=== PATIENT | male | born 1965 | race African-American/Black ===

== ENCOUNTER → 2021-02-08 | Outpatient (CLI) | payer BC ==
--- NOTE | 2021-02-08 22:22 | REP ---
INDICATION: RT SUBMANDIBULAR LYMPHNODE SWELLING ? SOLID COMPARISON: None. TECHNIQUE: Directed grayscale and color B-mode evaluation using linear high-frequency transducer. FINDINGS: Directed ultrasound examination of the right submandibular region demonstrates multiple prominent lymph nodes measuring up to roughly 10 x 8 x 22 mm and 17 x 6 x 12 mm along with heterogeneous ovoid solid complex mass lesions measuring 3.2 x 1.8 x 2.6 cm and 2.8 x 2.1 x 3.3 cm which may represent large pathologic lymph nodes are nonspecific mass lesion. IMPRESSION: Right submandibular prominent lymph nodes and 2 complex solid mass lesions possibly reflecting pathologic lymph nodes. Correlation with physical examination and underlying symptomatology is recommended. Short-term follow-up is warranted to confirm regression or to evaluate for the possible need of tissue sampling. <Electronically signed by Gerry Corrales > 02/08/21 1133
== END ==
LOC: M RAD 11:10
PROVIDERS: ATTEND Internal Medicine
DX: R22.1 Localized swelling, mass and lump, neck (principal)

== ENCOUNTER → 2021-02-21 | Outpatient (CLI) | payer BC ==
[~2021-02-21] MED LIST: HYDR-3490 PO; LISI20TA33 PO; VITMTA PO
--- NOTE | 2021-02-21 20:58 | ECGEPIP ---
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
== END ==
LOC: M EKG 12:24
PROVIDERS: ATTEND Anesthesiology
DX: Z01.818 Encounter for other preprocedural examination (principal)

== ENCOUNTER → 2021-02-21 | Outpatient (CLI) | payer BC | LOC: M LABSMTC 11:42 | PROVIDERS: ATTEND Anesthesiology | DX: Z01.812 Encounter for preprocedural laboratory examination (principal); Z11.52 Encounter for screening for COVID-19 ==

== ENCOUNTER → 2021-03-14 | Outpatient (CLI) | payer BC ==
[~2021-03-14] MED LIST changes: +LIDOCAINE 1% MDV 20ML VIAL As Ordered ONE; +OMEP1CAP73 PO; +SODIUM BICARBONATE 8.4% INJ 50MEQ 50 ML VIAL As Ordered ONE
[2021-03-14 13:45] VITALS: BP 143/96
--- NOTE | 2021-03-14 18:06 | REP ---
INDICATION: RT ENLARGED LYMPHONDE SUBMANDIBULAR. COMPARISON: None. TECHNIQUE: The procedure was performed by Carol Rayo [facility], under the direct supervision of Dr. Syed. The risks and benefits of the procedure were explained to the patient and an informed consent was obtained both verbally and written. Directly prior to the start of the procedure a formal time-out was completed in the procedure room. FINDINGS: Using ultrasound guidance the right submandibular lymph node was localized. The skin was prepped and draped in a sterile fashion. Thirteen mL of buffered lidocaine was used as a local anesthetic. Using ultrasound guidance a 17/18 gauge coaxial needle biopsy system was inserted and advanced into the right submandibular lymph node. Eight core biopsy specimens were obtained. Four specimens were sent to our lab here, and remaining 4 were sent out in RPMI solution, for further testing. The patient tolerated the procedure well and there were no immediate complications. After the appropriate amount of monitored convalescence the patient was discharged from the department. IMPRESSION: 1. Ultrasound-guided right submandibular lymph node biopsy. <Electronically signed by Carol Rayo > 03/14/21 1551 <Electronically signed by Jordon Syed > 03/14/21 [id number]
== END ==
LOC: M IRPRO 12:31
PROVIDERS: ATTEND Otolaryngology
DX: C77.0 Secondary and unspecified malignant neoplasm of lymph nodes of head, face and neck (principal)

== ENCOUNTER → 2021-04-05 | Outpatient (CLI) | payer BC ==
[~2021-04-05] MED LIST changes: -LIDOCAINE 1% MDV 20ML VIAL As Ordered ONE; -SODIUM BICARBONATE 8.4% INJ 50MEQ 50 ML VIAL As Ordered ONE
--- NOTE | 2021-04-05 12:46 | RADONC.CN ---
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 He has undergone laryngoscopic evaluation with Dr. Jernigan which was unrevealing. He has yet to undergo staging imaging and is seen today for consideration of RT in the management of this unknown primary head and neck cancer. Diagnosis/Treatment History Oncologic History Presented to PCP in January 2021 after noticing right-sided painless neck swelling. 02/08/21 US showing large kerline conglomerate right submental neck. 03/14/21 Biopsy of right level 1B: Lymph node, right submandibular, biopsy: Squamous cell carcinoma, poorly differentiated, involving lymph node. -4/TR 04/08/21 CT N/C/AP pending Interval History Here with his supportive . He reports only mild tenderness in the inferior portion of the adenopathy on the right. He has no weight loss, fevers, or night sweats. He has no oral pain or dysphagia. He quit smoking recently. His appetite is good and he has no fatigue. He works at a [employer] in [place]. He has pending dental extractions with his family dentist. Past Medical History: GERD HTN Past Surgical History: None Family History: Adopted Social History: 30 pack year former smoker quit 2020 Does not drink Allergies / Meds Allergies: Coded Allergies: No Known Allergies (Unverified , 02/16/21) Home Meds Reported Medications Omeprazole (Omeprazole) 20 Mg Capsule.dr, 1 CAP PO DAILY for 30 Days, #30 CAP 03/14/21 Multivitamins (Thera M Plus Tablet) 1 Each Tablet, 1 TAB PO DAILY, TAB 02/16/21 Hydrochlorothiazide (Hydrochlorothiazide) 25 Mg Tablet, 25 MG PO DAILY, TAB 02/16/21 Lisinopril (Lisinopril) 20 Mg Tablet, 20 MG PO DAILY, TAB 02/16/21 Review of Systems Constitutional: Denies: Fever, Malaise, Night Sweats, Fatigue, Weight Loss Eyes: Denies: Pain, Vision change HEENT: Denies: Head Aches, Ear Pain, Dysphagia, Sore Throat Skin: Denies: Rash, Lesions Pulmonary: Denies: Dyspnea, Cough Cardiovascular: Denies: Chest Pain Gastrointestinal: Denies: Abdominal Pain, Diarrhea Hematologic: Denies: Bruising, Bleeding Excessively Endocrine: Denies: Cold Intolerance Musculoskeletal: Denies: Neck pain, Shoulder pain, Arm pain, Back pain Neurological: Denies: Weakness, Numbness Psych: Reports: Mood Normal Vital Signs Ht 68" Wt 245 lbs BMI 37 T 98 P 72 RR 18 BP 141/97 O2 96% Pain 0 Fatigue 0 General Exam: Alert, Cooperative, No Acute Distress Eye Exam: PERRLA, EOMI ENT EXAM: Other ENT (Oral cavity exam, koi dentition with 3 carious teeth, no broken teeth. There are no visible or palpable mucosal lesions in the oral cavity, tongue or FOM. There is no palpable nodularity or lesions in the BOT or tonsillar fossae BL. There is no trismus. Thyroid is not enlarged. Laryngeal crepitus intact, elevates appropriately with swallowing. Neck is supple, there is conglomerate hard nodular adenopathy in the right submandibular fossa ~6 cm in greatest dimension there is evidence of matting and fixation of the kerline mass, the remainder of the necks are without palpable adenopathy. Examination of the head and neck skin reveals no lesions. ) Chest Exam: Clear to auscultation, Normal air movement Heart Exam: Rate Normal Abdomen Exam: Soft; Negative: Tenderness Extremity Exam: Negative: Edema Skin Exam: Nl turgor and temperature Neuro Exam: Normal Gait, Normal Speech, Cranial Nerves 3-12 NL Psych Exam: Mental status NL Other Physical Findings Laryngoscopy: Mic provided verbal consent to be scoped. Cetacaine was introduced in the right nare for anesthesia, the scope was introduced and passed easily to the nasopharynx which was covered in pink mucosa without visible lesions. The posterior pharyngeal wall was pink and well hydrated. The oropharynx was entered, the posterior soft palate was redundant and well visualized without lesions, the base of tongue bilaterally appeared symmetrical and somewhat nodular without any ulceration or kasey masses. The visible portions of the supraglottis and hypopharynx were normal appearing without lesions. The epiglottis was sharp rimmed and upright in orientation. The larynx was freely mobile with phonation and there were no lesions of the cords. The scope was withdrawn without incident and the patient tolerated the procedure well. Diagnostic and Laboratory Diagnostic Review Radiologic images, relevant labs and pathology reports were personally reviewed and discussed with Mr. Contreras. Assessment and Plan Impression Mr. 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 He has undergone laryngoscopic evaluation with Dr. Jernigan which was unrevealing. He has yet to undergo staging imaging and is seen today for consideration of RT in the management of this unknown primary head and neck cancer. Stage Unknown primary SCC of the right submandibular nodes [id number] stage IVB p16 pending Performance Status ECOG 0 Plan We had an extensive discussion with Mr. Contreras regarding the diagnosis at hand and available therapeutic options. He has excellent PS and no weight loss or bothersome symptoms at this time. I explained that based on workup to date he has unknown primary SCC of the head and neck, with the most likely sources the oral cavity given the submandibular location of the adenopathy versus the oropharynx. I have requested p16 testing on the the biopsy specimen which should help clarify the likely site of origin and direct elective RT volumes. He also has pending CT N/C/AP for 04/08/21, regardless of the findings on these studies, I will obtain PET-CT to inform treatment and target volume delineation. It is possible that there is an underlying lung or other primary, but this would be extremely uncommon. I do not think he would benefit from random biopsies at this time given that imaging has not been obtained, and he has no visible mucosal lesions. If the PET-CT is unrevealing this can be considered, but if p16 is positive, I would not advocate for additional tissue sampling. 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 I explained that 70 Gy in 35 fractions with VMAT, and concurrent chemotherapy with cisplatin is standard of care in this disease. We discussed the logistics of receiving radiation therapy in detail including the need for a 1-time planning session. This should occur ~ 2 weeks after his dental work/clearance is obtained. He will alert us about the timing of this. Given he has no weight loss or difficulty swallowing at this time, he has no indication for a PEG tube in this case. Nor does he want one anyhow. We reviewed the exhaustive list of side effects associated with HN treatment including fatigue, xerostomia, pain, weight loss, dysgeusia, skin reaction, fibrosis, ORN, lymphedema, etc. After discussing the risks, benefits and alternatives to radiation therapy, Mr. Contreras was amenable to pursuing radiotherapy. All questions were answered to the patient's satisfaction. We instructed the patient that if there were any questions,concerns or changes in clinical status in the interim to contact us. I will contact him with the scan results on 04/08/21 and order the PET-CT same day. Simulation will be contingent on imaging findings and timing of dental interventions. Recommendations CT scans as planned, will call patient with results Will order PET-CT on these are done p16 staining requested Primary chemoradiation 70 Gy in 35 fractions (barring unforeseen imaging fin dings) Billing Statement Total time of [61] minutes was spent preparing for the visit [3], obtaining HPI [7], examining the patient [9], reviewing diagnostic tests [4], discussing management options [26], coordinating care [4], and writing this note [8]. CRISTÓBAL DOLL MD Apr 05, 2021 12:46
== END ==
LOC: M ONCR 09:56
PROVIDERS: ATTEND General Practice
DX: C76.0 Malignant neoplasm of head, face and neck (principal); C77.0 Secondary and unspecified malignant neoplasm of lymph nodes of head, face and neck; I10 Essential (primary) hypertension; K08.9 Disorder of teeth and supporting structures, unspecified; K21.9 Gastro-esophageal reflux disease without esophagitis; Z79.899 Other long term (current) drug therapy; Z87.891 Personal history of nicotine dependence
CPT/HCPCS: 31575; G0463

== ENCOUNTER → 2021-04-08 | Outpatient (CLI) | payer BC ==
[~2021-04-08] MED LIST changes: +GASTROGRAFIN SOLUTION 30ML (Q9963) As Ordered ONE; +ISOVUE-370 76% 100ML VIAL As Ordered ONE
--- NOTE | 2021-04-08 15:45 | REP ---
INDICATION: HEAD/NECK CA STAGING COMPARISON: None. TECHNIQUE: Standard helical technique after the intravenous administration of 100 cc Isovue 370. FINDINGS: There is no mediastinal or hilar adenopathy. There are no pleural or pericardial effusions. The imaged osseous structures are within normal limits. Evaluation of the lung bowen shows scattered parenchymal bulla and pleural blebs with mild cylindrical bronchiectasis. There is an incidental pleural calcification in the right upper lobe consistent with a granuloma. There is a 2 mm sized pleural base nodule in the right lower lobe lateral basal segment. There is mild pleural thickening along. There are no significant nodules or spiculated lesions. The lateral right lower lobe region IMPRESSION: 1. Emphysematous changes as described above. 2. 3 mm size nodule right lower lobe. According to the revised Fleischner society criteria 1 year follow-up is recommended. This represents a category 2 lesion. 3. Mild cylindrical bronchiectasis and other findings as described above. <Electronically signed by Jono Gilbert > 04/08/21 [id number]
--- NOTE | 2021-04-08 15:49 | REP ---
INDICATION: HEAD/NECK CA STAGING. COMPARISON: 12/01/2013 the only prior TECHNIQUE: Standard helical technique after the intravenous administration of 100 cc Isovue 370. Oral bowel preparatory contrast was also administered prior to the exam FINDINGS: The liver, gallbladder, spleen, pancreas, and kidneys are within normal limits. Note is again made of bilateral adrenal gland nodular thickening which is unchanged. The abdominal aorta and para-aortic regions are within normal limits. The bowel loops and the mesenteries are within normal limits. There is no evidence of a mass or adenopathy. There is no free fluid or free air. Bone window technique throughout the exam shows air density in the L5-S1 disc space consistent with vacuum phenomena from degenerative disc disease. This represents a change. IMPRESSION: 1. Stable bilateral nodular thickening of the adrenal glands. 2. L5-S1 discogenic changes as described above. <Electronically signed by Jono Gilbert > 04/08/21 [id number]
--- NOTE | 2021-04-08 16:08 | REPVR ---
PROCEDURE INFORMATION: Exam: CT Neck With Contrast Exam date and time: 04/08/2021 2:48 PM Age: 56 years old Clinical indication: Neck pain; Additional info: Head/neck CA staging TECHNIQUE: Imaging protocol: Computed tomography images of the neck with contrast. Radiation optimization: All CT scans at this facility use at least one of these dose optimization techniques: automated exposure control; mA and/or kV adjustment per patient size (includes targeted exams where dose is matched to clinical indication); or iterative reconstruction. Contrast material: ISOVUE 370; Contrast volume: 50 ml; Contrast route: INTRAVENOUS (IV); COMPARISON: Thyroid, ST head+neck US 02/08/2021 11:26 AM FINDINGS: Paranasal sinuses: Mucous retention cysts are present in the bilateral maxillary and left sphenoid sinuses. Nasopharynx: Unremarkable. Oropharynx: Unremarkable. No significant tonsillar enlargement. Hypopharynx: Unremarkable. Larynx: Unremarkable. Normal epiglottis. Retropharyngeal space: Unremarkable. Submandibular/Parotid glands: Normal. Glands are normal in size. Thyroid: The thyroid gland is enlarged and heterogeneous. A 3 cm nodule is noted in the left thyroid. A follow-up thyroid ultrasound is recommended. Lymph nodes: Multiple pathologically enlarged right cervical chain lymph nodes are present. Two adjacent right level two lymph nodes measure 3.5 x 2.8 x 2.3 cm and 3.1 x 2.4 x 2.2 cm respectively. Minimal central necrosis is present. Multiple other small bilateral cervical chain lymph nodes are noted. Trachea: Visualized trachea is unremarkable. Lungs: Mild emphysema is noted in the lung apices. Bones/joints: Mild degenerative changes of the cervical spine are present. Soft tissues: Unremarkable. No significant soft tissue swelling. IMPRESSION: 1. Pathologically enlarged right cervical chain lymph nodes. Malignancy or metastatic disease, including lymphoma, is possible. Clinical and laboratory correlation is recommended. 2. 3 cm left thyroid nodule. A follow-up thyroid ultrasound is recommended. COMMENTS: Consistent with the [employer]'s Incidental Findings Committee white paper (J Am Oxana Radiol 2015): In patients aged 35 years and older with an incidental thyroid nodule equal to or greater than 1.[address], MRI or extrathyroidal US, further evaluation with dedicated thyroid US is recommended for patients with normal life expectancy and without comorbidities. For smaller nodules without suspicious features, no further evaluation or follow up is recommended. Electronically signed by: Xavier Fajardo On 04/08/2021 16:07:50 PM
== END ==
LOC: M RAD 13:14
PROVIDERS: ATTEND Specialist
DX: C76.0 Malignant neoplasm of head, face and neck (principal)

== ENCOUNTER → 2021-04-18 | Outpatient (CLI) | payer BC ==
[~2021-04-18] MED LIST changes: -GASTROGRAFIN SOLUTION 30ML (Q9963) As Ordered ONE; -ISOVUE-370 76% 100ML VIAL As Ordered ONE; +LIDOCAINE 1% MDV 20ML VIAL As Ordered ONE; +MIDAZOLAM INJ 2MG/2ML VIAL (J2250 PER 1MG) As Ordered ONE; +NS 1,000 ML IV SCH; +ceFAZolin 2 GM/D5W 50 ML IV BAG (J0690 PER 500MG) As Ordered ONE; +ceFAZolin SOD 2 GM in IV 1 EA IV ONE; +diphenhydrAMINE 50MG/ML VIAL (J1200) As Ordered ONE; +fentaNYL 100 MCG/2 ML INJECTION (J3010) As Ordered ONE
--- NOTE | 2021-04-18 08:50 | IRHP ---
[facility] IR Pre-Procedure H & P General Date of Service: Apr 18, 2021 Procedure: Same Day Surgery Interval History and Physical I have seen the patient and reviewed last H & P performed within 30 days. There is no significant interval change. History of Present Illness Chief Complaint The patient is a 56-year-old male admitted with a reason for visit of Head, Face, Neck Ca. PRE-PROCEDURE DIAGNOSIS: Head and neck cancer HEART: Normal rate. LUNGS: Normal breathing at rest. ASA Classification ASA Classification: II-Mild systemic disease Mallampati Score: II NPO: Yes Problems with prior sedation: No Obstructive Sleep Apnea: No Plan moderate sedation Allergies Coded Allergies: No Known Allergies (Unverified , 02/16/21) Home Medications Scheduled Hydrochlorothiazide (Hydrochlorothiazide), 25 MG PO DAILY, (Reported) Lisinopril (Lisinopril), 20 MG PO DAILY, (Reported) Multivitamins (Thera M Plus Tablet), 1 TAB PO DAILY, (Reported) Omeprazole (Omeprazole), 1 CAP PO DAILY, (Reported) JOSE R THOMAS MD Apr 18, 2021 08:50
[2021-04-18 11:55] VITALS: BP 113/64
--- NOTE | 2021-04-21 13:05 | IRPON ---
IR Postoperative Note Date Of Procedure: Apr 18, 2021 Time Of Procedure: 16:00 IR Postoperative Note IR Ultrasound and fluoroscopy guided port placement IR Ultrasound of the neck. IR Moderate sedation. Clinical indication: Head and neck cancer. Physician: Dr. Mckenzie. Procedure: The patient was advised of the benefits, risks, and alternatives of the procedure and informed consent was obtained. A time-out was performed with verification of the patient's name, MRN, site of procedure and type of procedure to be performed. The patient was positioned in the supine position on the angiographic table. The site was prepped and draped in the usual sterile fashion. Moderate sedation was performed by the physician including the presence of an independent trained RN who assisted and monitored the patient's level of consciousness and physiologic status. Following the administration of fentanyl and Versed , the physician spent 45 minutes of continuous face to face time with the patient. Ultrasound of the neck reveals a patent and compressible right internal jugular vein. A core dipper radiograph reveals no gross abnormality. The neck and anterior chest wall were anesthetized with lidocaine. The right internal jugular vein was accessed using a microintroducer needle under ultrasound guidance, via a lateral approach. An 018 wire was advanced into the superior vena cava, the needle was removed and a microsheath was placed. An Amplatz wire was then passed into the inferior vena cava. An incision at the internal jugular vein access site and anterior chest wall were made using a scalpel. An incision was made at the anterior chest wall. A small pocket was created using a combination of blunt and sharp dissection. A tunneling device was then used to pass the catheter from the pocket to the neck puncture site. An 8- [employer] Angio Talkito Smart power port was then positioned in the pocket. The catheter was then measured and cut. The introducer sheath was exchanged for a peel-away sheath. The catheter was passed through the peel-away sheath into the internal jugular vein and the peel-away sheath was removed. The port tip was positioned at the cavoatrial junction. The port was then accessed with a Michelle needle. The port flushes and aspirates well. The puncture site in the neck was closed. The chest wall incision was then closed with 2-0 Vicryl and 4-0 Monocryl. Glue and Steri- Strips were applied. A sterile dressing was then applied. The patient tolerated the procedure well and was returned to the PRU in stable condition. Estimated blood loss: <5 ml. Complications: None. Conclusion: 1. Successful placement of an 8-[place]ian Angio dynamics Smart power port via the right internal jugular vein. The port is ready for immediate use. 2. Patient to follow up in IR clinic in 2 weeks. Thank you for this referral. JOSE R MCKENZIE MD Apr 21, 2021 13:05
== END ==
LOC: M IRPRO 08:30
PROVIDERS: ATTEND Specialist
DX: C77.0 Secondary and unspecified malignant neoplasm of lymph nodes of head, face and neck (principal); Z79.899 Other long term (current) drug therapy
CPT/HCPCS: 36561; 99152; 99153; C1769; C1788; C1894; J0690; J1200; J1642; J1644; J2250; J3010

== ENCOUNTER → 2021-04-25 | Outpatient (CLI) | payer BC ==
[~2021-04-25] MED LIST changes: -LIDOCAINE 1% MDV 20ML VIAL As Ordered ONE; -MIDAZOLAM INJ 2MG/2ML VIAL (J2250 PER 1MG) As Ordered ONE; -NS 1,000 ML IV SCH; -ceFAZolin 2 GM/D5W 50 ML IV BAG (J0690 PER 500MG) As Ordered ONE; -ceFAZolin SOD 2 GM in IV 1 EA IV ONE; -diphenhydrAMINE 50MG/ML VIAL (J1200) As Ordered ONE; -fentaNYL 100 MCG/2 ML INJECTION (J3010) As Ordered ONE
--- NOTE | 2021-04-26 08:50 | REP ---
INDICATION: STAGING HEAD AND NECK CANCER. COMPARISON: Prior CT neck chest abdomen and pelvis 04/08/2021. No prior PET-CT for comparison. TECHNIQUE: After the intravenous administration of 8.70 mCi of FDG 18 triplane whole-body PET-CT was performed from the skull base to the mid thigh. FINDINGS: In the supraglottic right neck and abutting the medial aspect of the pantry cook space there is hypermetabolic activity with a maximal SUV value of 8.29. There is bilateral hypermetabolic activity within the parotid space left greater than right having a maximal SUV value the left of 4.57 and on the right of 3.38. There is extensive hypermetabolic activity seen in the bilateral suprahyoid and infrahyoid neck spaces but right much greater than left where the prior CT of the neck showed extensive adenopathy. The maximal SUV value on the right is in the posterior cervical chain and having an SUV value of 10.98. The maximal SUV value on the left is in the submandibular region having an SUV value of 4.50. At the level of the superior aspect of the epiglottis and tongue base there is hypermetabolic activity seen bilaterally and across the midline with a maximal SUV value of 4.89. This could be secondary to normal deglutition during the exam. There is hypermetabolic activity in the right teres minor muscle having a maximal SUV value of 4.86. This is likely secondary to rotator cuff pathology and or insufficient post injection resting. There is hypermetabolic activity in L5 but this is most consistent with chronic arthritic and discogenic changes as that is identified on CT. The maximal SUV value of this region is 5.12. No other areas of abnormal hypermetabolic activity are seen in the neck, chest, abdomen, or pelvis. IMPRESSION: 1. Abnormal neck soft tissue hypermetabolism, as described above, consistent with the CT findings of 04/08/2021 and neoplasm. The hypermetabolic activity seen in the bilateral parotid gland could be secondary to lymphadenopathy within the parotid space not perceivable by CT or non malignant inflammatory changes. This needs to be correlated clinically. 2. Other findings as described above. <Electronically signed by Jono Gilbert > 04/26/21 [id number]
== END ==
LOC: M PLARAD 08:07
PROVIDERS: ATTEND General Practice
DX: C77.0 Secondary and unspecified malignant neoplasm of lymph nodes of head, face and neck (principal)

== ENCOUNTER → 2021-05-03 | Outpatient (POV) | payer BC ==
[~2021-05-03] VITALS: Ht 172.7 cm; Wt 111.4 kg
[~2021-05-03] MED LIST changes: +ONDA8TAB8 PO; +PROC10TA4 PO
[2021-05-03 10:50] VITALS: BP 160/92
--- NOTE | 2021-05-05 12:29 | IRPN ---
[facility] IR Progress Note IR Progress Note DATE: May 03, 2021 FOLLOW-UP: Status post port placement. Patient reports doing well. No fevers, chills, pain or discharge from site. ON EXAMINATION: Port site healing well. Glue and Steri-Strips are in place. No redness, swelling or fluctuance. IMPRESSION: Doing well status post port placement. Glue and Steri-Strips will fall off by themselves. No further follow-up scheduled unless initiated by patient and/or referring provider. Thank you for this referral Allergies Coded Allergies: No Known Allergies (Unverified , 02/16/21) VS,Fishbone, I+O VS, Fishbone, I+O Vital Signs Date Time Temp Pulse Resp B/P (MAP) Pulse Ox O2 Delivery O2 Flow Rate FiO2 05/03/21 10:50 97.5 65 16 160/92 (114) 99 Room Air JOSE R THOMAS MD May 05, 2021 12:29
== END ==
LOC: M IRPOV 10:37
PROVIDERS: ATTEND Radiology Diagnostic Radiology
DX: Z45.2 Encounter for adjustment and management of vascular access device (principal)

== ENCOUNTER → 2021-05-24 | Outpatient (RCR) | payer BC ==
[~2021-05-24] MED LIST changes: +EMLA2.5C; +FLUC10TA PO; +GABA-282 PO; +IBUP-1022 PO; +LIDO1CRE42 TOP; +MAGICMW PO; +MORP-69 PO; +NYST50SS PO; +OXYC1SOL3 PO; -PROC10TA4 PO; +PROC10TA5 PO; +SILV1CRE60 TOP; +SUCR1SS PO
== END ==
LOC: M ONCR 05-03 09:28
PROVIDERS: ATTEND General Practice
DX: C77.0 Secondary and unspecified malignant neoplasm of lymph nodes of head, face and neck (principal)

== ENCOUNTER 2021-06-23 15:17 | Outpatient (RCR) | payer BC ==
[~2021-06-23 15:17] MED LIST changes: -FLUC10TA PO; -GABA-282 PO; +PROC10TA4 PO; -PROC10TA5 PO; -SILV1CRE60 TOP; -SUCR1SS PO
[2021-06-27] MEDS ORDERED: GABA-282 PO (17:39)
[2021-06-27] MEDS ORDERED: SILV1CRE60 TOP (17:39)
[2021-06-27] MEDS ORDERED: SUCR1SS PO (17:39)
== END 2021-06-24 ==
LOC: M ONCR 15:17
PROVIDERS: ATTEND General Practice
DX: C09.0 Malignant neoplasm of tonsillar fossa (principal)

== ENCOUNTER 2021-07-05 09:22 | Outpatient (RCR) | payer BC ==
[~2021-07-05 09:22] MED LIST changes: +FLUC10TA PO; +GABA-282 PO; -PROC10TA4 PO; +PROC10TA5 PO; +SILV1CRE60 TOP; +SUCR1SS PO
[2021-07-13] MEDS ORDERED: FLUC10TA PO (15:34)
== END 2021-07-25 ==
LOC: M ONCR 09:22
PROVIDERS: ATTEND General Practice
DX: C77.0 Secondary and unspecified malignant neoplasm of lymph nodes of head, face and neck (principal)

== ENCOUNTER → 2021-07-13 | Outpatient (CLI) | payer BC | LOC: M ONCR 14:56 | PROVIDERS: ATTEND General Practice | DX: C09.0 Malignant neoplasm of tonsillar fossa (principal); Z92.21 Personal history of antineoplastic chemotherapy ==

== ENCOUNTER → 2021-07-26 | Outpatient (POV) | payer BC ==
[~2021-07-26] VITALS: Ht 172.7 cm; Wt 83.1 kg
[2021-07-26 10:05] VITALS: BP 103/60
== END ==
LOC: M IRPOV 10:01
PROVIDERS: ATTEND Radiology Diagnostic Radiology
DX: Z43.1 Encounter for attention to gastrostomy (principal)

== ENCOUNTER → 2021-07-27 | Outpatient (CLI) | payer BC | LOC: M ONCR 14:50 | PROVIDERS: ATTEND General Practice | DX: C09.0 Malignant neoplasm of tonsillar fossa (principal); Z92.21 Personal history of antineoplastic chemotherapy; Z92.3 Personal history of irradiation ==

== ENCOUNTER → 2021-10-05 | Outpatient (CLI) | payer BC ==
[~2021-10-05] MED LIST changes: +HYDR-3490; +LISI20TA33
== END ==
LOC: M ONCR 15:27
PROVIDERS: ATTEND General Practice
DX: C09.0 Malignant neoplasm of tonsillar fossa (principal); Z87.891 Personal history of nicotine dependence; Z92.21 Personal history of antineoplastic chemotherapy; Z92.3 Personal history of irradiation
CPT/HCPCS: 31575; G0463

== ENCOUNTER → 2021-10-18 | Outpatient (POV) | payer BC ==
[~2021-10-18] VITALS: Ht 175.3 cm; Wt 83.1 kg
[2021-10-18 08:50] VITALS: BP 144/86
== END ==
LOC: M IRPOV 08:46
PROVIDERS: ATTEND Radiology Diagnostic Radiology
DX: Z43.1 Encounter for attention to gastrostomy (principal); Z45.2 Encounter for adjustment and management of vascular access device; Z85.89 Personal history of malignant neoplasm of other organs and systems; Z92.21 Personal history of antineoplastic chemotherapy; Z92.3 Personal history of irradiation

== ENCOUNTER → 2021-10-19 | Outpatient (CLI) | payer BC ==
[~2021-10-19] MED LIST changes: +LIDOCAINE 1% MDV 20ML VIAL As Ordered ONE; +MIDAZOLAM INJ 2MG/2ML VIAL (J2250 PER 1MG) As Ordered ONE; +NS 1,000 ML IV SCH; +ceFAZolin 2 GM/D5W 50 ML IV BAG (J0690 PER 500MG) As Ordered ONE; +ceFAZolin SOD 2 GM in IV 1 EA IV ONE; +diphenhydrAMINE 50MG/ML VIAL (J1200) As Ordered ONE; +fentaNYL 100 MCG/2 ML INJECTION As Ordered ONE
[2021-10-19 13:45] VITALS: BP 145/96
== END ==
LOC: M IRPRO 10:06
PROVIDERS: ATTEND Radiology Diagnostic Radiology
DX: Z45.2 Encounter for adjustment and management of vascular access device (principal); C76.0 Malignant neoplasm of head, face and neck
CPT/HCPCS: 36590; 99152; 99153; J0690; J1200; J1644; J2250; J3010

== ENCOUNTER → 2021-11-08 | Outpatient (POV) | payer BC ==
[~2021-11-08] VITALS: Ht 175.3 cm; Wt 83.1 kg
[~2021-11-08] MED LIST changes: -LIDOCAINE 1% MDV 20ML VIAL As Ordered ONE; -MIDAZOLAM INJ 2MG/2ML VIAL (J2250 PER 1MG) As Ordered ONE; -NS 1,000 ML IV SCH; -ceFAZolin 2 GM/D5W 50 ML IV BAG (J0690 PER 500MG) As Ordered ONE; -ceFAZolin SOD 2 GM in IV 1 EA IV ONE; -diphenhydrAMINE 50MG/ML VIAL (J1200) As Ordered ONE; -fentaNYL 100 MCG/2 ML INJECTION As Ordered ONE
[2021-11-08 09:15] VITALS: BP 156/78
== END ==
LOC: M IRPOV 09:11
PROVIDERS: ATTEND Radiology Diagnostic Radiology
DX: Z48.812 Encounter for surgical aftercare following surgery on the circulatory system (principal)

== ENCOUNTER → 2022-01-12 | Outpatient (CLI) | payer BC | LOC: M ONCR 10:00 | PROVIDERS: ATTEND General Practice | DX: Z08 Encounter for follow-up examination after completed treatment for malignant neoplasm (principal); C77.0 Secondary and unspecified malignant neoplasm of lymph nodes of head, face and neck; R43.9 Unspecified disturbances of smell and taste; R68.2 Dry mouth, unspecified; Z85.818 Personal history of malignant neoplasm of other sites of lip, oral cavity, and pharynx; Z87.891 Personal history of nicotine dependence; Z92.21 Personal history of antineoplastic chemotherapy; Z92.3 Personal history of irradiation | CPT/HCPCS: 31575; G0463 ==

== ENCOUNTER → 2022-04-14 | Outpatient (CLI) | payer BC ==
[~2022-04-14] MED LIST changes: +GABA-282; +IBUP-1022
== END ==
LOC: M ONCR 09:57
PROVIDERS: ATTEND General Practice
DX: Z08 Encounter for follow-up examination after completed treatment for malignant neoplasm (principal); Z85.818 Personal history of malignant neoplasm of other sites of lip, oral cavity, and pharynx; Z79.1 Long term (current) use of non-steroidal anti-inflammatories (NSAID); Z79.899 Other long term (current) drug therapy; Z87.891 Personal history of nicotine dependence; Z92.21 Personal history of antineoplastic chemotherapy; Z92.3 Personal history of irradiation
CPT/HCPCS: 31575; G0463

== ENCOUNTER → 2022-07-14 | Outpatient (CLI) | payer BC ==
[~2022-07-14] MED LIST changes: +NYST-38 PO; -NYST50SS PO
[2022-07-14 10:57] LABS: FREE T4 1.1 NG/DL (0.89-1.76); THYROID STIMULATING HORMONE 1.154 uIU/ML (0.55-4.78)
== END ==
LOC: M ONCR 09:28
PROVIDERS: ATTEND General Practice
DX: C09.0 Malignant neoplasm of tonsillar fossa (principal); Z79.1 Long term (current) use of non-steroidal anti-inflammatories (NSAID); Z79.899 Other long term (current) drug therapy; Z87.891 Personal history of nicotine dependence; Z92.21 Personal history of antineoplastic chemotherapy; Z92.3 Personal history of irradiation
CPT/HCPCS: 31575; 36415; 84439; 84443; G0463

== ENCOUNTER → 2022-08-25 | Outpatient (CLI) | payer BC | LOC: M RAD 14:18 | PROVIDERS: ATTEND Family Medicine | DX: M79.604 Pain in right leg (principal) ==

== ENCOUNTER → 2022-09-18 | Outpatient (CLI) | payer BC | LOC: M PLARAD 08:17 | PROVIDERS: ATTEND Specialist | DX: C76.1 Malignant neoplasm of thorax (principal) ==

== ENCOUNTER → 2022-10-12 | Outpatient (CLI) | payer BC | LOC: M ONCR 09:07 | PROVIDERS: ATTEND General Practice | DX: C09.0 Malignant neoplasm of tonsillar fossa (principal); Z79.1 Long term (current) use of non-steroidal anti-inflammatories (NSAID); Z79.899 Other long term (current) drug therapy; Z87.891 Personal history of nicotine dependence; Z92.21 Personal history of antineoplastic chemotherapy; Z92.3 Personal history of irradiation | CPT/HCPCS: 31575; G0463 ==

== ENCOUNTER 2023-05-18 06:18 | Inpatient (IN) | payer BC ==
[~2023-05-18] VITALS: Ht 175.3 cm; Wt 108.0 kg
[~2023-05-18 06:18] MED LIST changes: +HYDR12.55 PO; -LIDO1CRE42 TOP; +LIDO30CR18 TOP; -LISI20TA33
[2023-05-18] MEDS ORDERED: ONDANSETRON 4MG 2ML VIAL IV ONE (08:15)
[2023-05-18] MEDS: MORPHINE 4 MG/ML 1ML VIAL IV PRN ×2 (08:23→10:39)
[2023-05-18 08:26] LABS: BASO % 0.2 % (0.0-1.0); EOS % 0.2 % (0.0-3.0); HEMATOCRIT 43.9 % (42.0-52.0); HEMOGLOBIN 15.2 g/dl (13.5-17.5); LYMPH # 1.1 10^3/uL (1.5-5.0); LYMPH % 12.4 % (24.0-44.0); MEAN CORPUSCULAR HEMOGLOBIN 31.3 pg (27.0-33.0); MEAN CORPUSCULAR HGB CONC 34.6 g/dl (32.0-36.5); MEAN CORPUSCULAR VOLUME 90.3 fl (80.0-96.0); MONO # 0.6 10^3/uL (0.0-0.8); NEUTROPHILS # 6.8 10^3/uL (1.5-8.5); NEUTROPHILS % 79.8 % (36.0-66.0); PLATELET COUNT, AUTOMATED 268 10^3/uL (150-450); RED BLOOD COUNT 4.86 10^6/uL (4.30-6.10); WHITE BLOOD COUNT 8.5 10^3/uL (4.0-10.0)
[2023-05-18 09:09] LABS: RSV AMPLIFICATION NEGATIVE (NEGATIVE)
[2023-05-18 09:25] LABS: ALBUMIN 3.4 G/DL (3.2-5.2); BILIRUBIN,DIRECT 1.4 MG/DL (<0.4); BILIRUBIN,TOTAL 2.1 MG/DL (0.3-1.2); CREATININE FOR GFR 1.73 MG/DL (0.70-1.30); GLOMERULAR FILTRATION RATE 52.6 (>56); POTASSIUM SERUM 4.6 MMOL/L (3.5-5.1); TOTAL PROTEIN 6.4 G/DL (5.7-8.2)
[2023-05-18] MEDS ORDERED: ISOVUE-370 76% 100ML VIAL As Ordered ONE (09:43)
[2023-05-18 10:09] LABS: CALCIUM LEVEL 9.3 MG/DL (8.5-10.1)
[2023-05-18] MEDS ORDERED: PIPERACILLIN/TAZOBACTAM SOD 3.375 GM in D5W MINI-BAG PLUS 50 ML IV ONE (14:35)
[2023-05-18] MEDS ORDERED: ONDANSETRON 4MG 2ML VIAL IV PRN (14:45)
[2023-05-18] MEDS ORDERED: HYDROMORPHONE HCL 0.5 MG/ 0.5 ML SYRINGE IV PRN (14:45)
[2023-05-18] MEDS ORDERED: HOME MED LIST COMPLETE! XX SCH ×2 (15:10→16:30)
[2023-05-18] MEDS ORDERED: MED REC IN PROGRESS XX SCH (15:40)
[2023-05-18 16:15] VITALS: BP 145/95; TEMP 98.8; O2SAT 97
[2023-05-18] MEDS ORDERED: CIAL10TA PO (16:25)
[2023-05-18] MEDS: LR 1,000 ML IV SCH (16:33)
[2023-05-18] MEDS ORDERED: OMEPRAZOLE 20MG CAP PO PRN (17:55)
[2023-05-18] MEDS: MULTIVITAMINS/MINERALS THERAP 1 TAB PO SCH (18:06)
[2023-05-18] MEDS: hydroCHLOROthiazide 12.5 MG CAPSULE PO SCH (18:06)
[2023-05-18 20:10] VITALS: O2SAT 86
[2023-05-18 20:14] VITALS: O2SAT 91
[2023-05-18] MEDS: PIPERACILLIN/TAZOBACTAM SOD 3.375 GM in D5W MINI-BAG PLUS 50 ML IV SCH (21:11)
[2023-05-18 22:00] VITALS: BP 150/79; TEMP 97.9; O2SAT 94
[2023-05-19] VITALS (9 sets, daily range): BP systolic 102–144; BP diastolic 60–83; TEMP 97.9–99.1; O2SAT 91–95
[2023-05-19] MEDS: PIPERACILLIN/TAZOBACTAM SOD 3.375 GM in D5W MINI-BAG PLUS 50 ML IV SCH ×4 (04:02→20:35)
[2023-05-19 06:00] LABS: HEMOGLOBIN 14.4 g/dl (13.5-17.5); MEAN CORPUSCULAR HEMOGLOBIN 30.4 pg (27.0-33.0); MEAN CORPUSCULAR HGB CONC 33.5 g/dl (32.0-36.5); MEAN CORPUSCULAR VOLUME 90.7 fl (80.0-96.0); PLATELET COUNT, AUTOMATED 255 10^3/uL (150-450); RED BLOOD COUNT 4.74 10^6/uL (4.30-6.10); WHITE BLOOD COUNT 8.2 10^3/uL (4.0-10.0)
[2023-05-19] MEDS: ENOXAPARIN 40MG/0.4ML SYRINGE (J1650 PER 10MG) SC SCH (07:16)
[2023-05-19 07:33] LABS: CREATININE FOR GFR 1.82 MG/DL (0.70-1.30); GLOMERULAR FILTRATION RATE 49.6 (>56)
[2023-05-19 07:34] LABS: ALBUMIN 2.8 G/DL (3.2-5.2); BILIRUBIN,DIRECT 1.3 MG/DL (<0.4); BILIRUBIN,TOTAL 2.1 MG/DL (0.3-1.2); CALCIUM LEVEL 8.5 MG/DL (8.5-10.1); CARBON DIOXIDE LEVEL 26.9 MMOL/L (20-31); POTASSIUM SERUM 4.3 MMOL/L (3.5-5.1); TOTAL PROTEIN 5.6 G/DL (5.7-8.2)
[2023-05-19] MEDS: hydroCHLOROthiazide 12.5 MG CAPSULE PO SCH (07:58)
[2023-05-19] MEDS: MULTIVITAMINS/MINERALS THERAP 1 TAB PO SCH (08:00)
[2023-05-19] MEDS: LR 1,000 ML IV SCH (08:00)
[2023-05-19] MEDS ORDERED: INDOCYANINE GREEN 25MG VIAL (IC-GREEN) As Ordered ONE (08:08)
[2023-05-19] MEDS ORDERED: LIDOCAINE 1% SDV 30ML VIAL As Ordered ONE (08:09)
[2023-05-19] MEDS ORDERED: ZOSYN 3.375GM VIAL As Ordered ONE (08:25)
[2023-05-19] MEDS ORDERED: LIDOCAINE 2% 100MG/5ML SDV (FOR ANES.) As Ordered ONE (09:14)
[2023-05-19] MEDS ORDERED: propofoL 200 MG/20 ML VIAL As Ordered ONE ×2 (09:14→09:47)
[2023-05-19] MEDS ORDERED: KETOROLAC 60MG 2ML VIAL As Ordered ONE (09:14)
[2023-05-19] MEDS ORDERED: PHENYLephrine 500MCG 5ML (100MCG/ML) SYRINGE As Ordered ONE (09:14)
[2023-05-19] MEDS ORDERED: fentaNYL 250 MCG/5 ML INJECTION As Ordered ONE (09:14)
[2023-05-19] MEDS ORDERED: ONDANSETRON 4MG 2ML VIAL As Ordered ONE (09:14)
[2023-05-19] MEDS ORDERED: ACETAMINOPHEN 1000MG 100ML IV BAG As Ordered ONE (09:14)
[2023-05-19] MEDS ORDERED: SUGAMMADEX SODIUM 500 MG/5 ML VIAL (BRIDION) As Ordered ONE (09:14)
[2023-05-19] MEDS ORDERED: MIDAZOLAM INJ 2MG/2ML VIAL As Ordered ONE (09:14)
[2023-05-19] MEDS ORDERED: ROCURONIUM BROMIDE 50MG/5ML VIAL As Ordered ONE (09:14)
[2023-05-19] MEDS ORDERED: PERCOCET 5MG/325MG TAB PO PRN ×2 (10:15)
[2023-05-19] MEDS ORDERED: KETOROLAC 30 MG/ML 1ML VIAL IV SCH (15:00)
[2023-05-19] MEDS ORDERED: KETOROLAC 30 MG/ML 1ML VIAL IV PRN (20:00)
[2023-05-20] VITALS: BP 125/79; TEMP 98.6; O2SAT 95
[2023-05-20] MEDS: PIPERACILLIN/TAZOBACTAM SOD 3.375 GM in D5W MINI-BAG PLUS 50 ML IV SCH ×2 (03:03→08:09)
[2023-05-20 04:00] VITALS: BP 141/84; TEMP 98.4; O2SAT 95
[2023-05-20 07:33] LABS: BASO % 0.2 % (0.0-1.0); EOS # 0.1 10^3/uL (0.0-0.5); EOS % 0.5 % (0.0-3.0); HEMATOCRIT 40.5 % (42.0-52.0); HEMOGLOBIN 13.7 g/dl (13.5-17.5); LYMPH # 1.6 10^3/uL (1.5-5.0); LYMPH % 15.7 % (24.0-44.0); MEAN CORPUSCULAR HEMOGLOBIN 30.2 pg (27.0-33.0); MEAN CORPUSCULAR HGB CONC 33.8 g/dl (32.0-36.5); MEAN CORPUSCULAR VOLUME 89.2 fl (80.0-96.0); MONO # 0.9 10^3/uL (0.0-0.8); MONO % 8.8 % (2.0-8.0); NEUTROPHILS # 7.5 10^3/uL (1.5-8.5); NEUTROPHILS % 74.6 % (36.0-66.0); PLATELET COUNT, AUTOMATED 247 10^3/uL (150-450); RED BLOOD COUNT 4.54 10^6/uL (4.30-6.10)
[2023-05-20 08:09] VITALS: BP 146/87
[2023-05-20 08:09] LABS: ALBUMIN 2.7 G/DL (3.2-5.2); BILIRUBIN,TOTAL 0.9 MG/DL (0.3-1.2); CALCIUM LEVEL 8.3 MG/DL (8.5-10.1); CREATININE FOR GFR 2.01 MG/DL (0.70-1.30); GLOMERULAR FILTRATION RATE 44.2 (>56); TOTAL PROTEIN 5.4 G/DL (5.7-8.2)
[2023-05-20] MEDS: hydroCHLOROthiazide 12.5 MG CAPSULE PO SCH (08:09)
[2023-05-20] MEDS: MULTIVITAMINS/MINERALS THERAP 1 TAB PO SCH (08:09)
[2023-05-20] MEDS: ENOXAPARIN 40MG/0.4ML SYRINGE (J1650 PER 10MG) SC SCH (08:10)
[2023-05-20] MEDS ORDERED: NORV5TAB PO (08:48)
== END 2023-05-20 10:00 | disposition home or self-care (01) | DRG 263 ==
LOC: M ED 06:18 → M ED INP 14:42 → ENRESERV 14:57 → M MSPAV 16:07
PROVIDERS: ADMIT Internal Medicine; ATTEND Internal Medicine
PROC: 8E0W4CZ Robotic Assisted Procedure of Trunk Region, Percutaneous Endoscopic Approach (ICD-10-PCS; 2023-05-19)
PROC: BF53200 Other Imaging of Gallbladder and Bile Ducts using Fluorescing Agent, Indocyanine Green Dye, Intraoperative (ICD-10-PCS; 2023-05-19)
PROC: 0FT44ZZ Resection of Gallbladder, Percutaneous Endoscopic Approach (ICD-10-PCS; principal; 2023-05-19 08:30)
DX: K80.00 Calculus of gallbladder with acute cholecystitis without obstruction (principal); I12.9 Hypertensive chronic kidney disease with stage 1 through stage 4 chronic kidney disease, or unspecified chronic kidney disease; N18.9 Chronic kidney disease, unspecified; Z85.818 Personal history of malignant neoplasm of other sites of lip, oral cavity, and pharynx; Z92.21 Personal history of antineoplastic chemotherapy; Z92.3 Personal history of irradiation; R74.01 Elevation of levels of liver transaminase levels; Z79.899 Other long term (current) drug therapy

== ENCOUNTER 2023-06-15 19:12 | Emergency (ER) | payer BC ==
[~2023-06-15] VITALS: Ht 175.3 cm; Wt 108.1 kg
[~2023-06-15 19:12] MED LIST changes: -LEVO1TAB39 PO
[2023-06-15 19:49] LABS: BASO % 0.1 % (0.0-1.0); EOS % 0.1 % (0.0-3.0); HEMATOCRIT 43.1 % (42.0-52.0); LYMPH # 1.4 10^3/uL (1.5-5.0); LYMPH % 5.3 % (24.0-44.0); MEAN CORPUSCULAR HGB CONC 34.8 g/dl (32.0-36.5); MONO # 1.4 10^3/uL (0.0-0.8); NEUTROPHILS # 23.9 10^3/uL (1.5-8.5); NEUTROPHILS % 88.9 % (36.0-66.0); PLATELET COUNT, AUTOMATED 303 10^3/uL (150-450); RED BLOOD COUNT 4.84 10^6/uL (4.30-6.10); WHITE BLOOD COUNT 26.9 10^3/uL (4.0-10.0)
[2023-06-15] MEDS ORDERED: ONDANSETRON 4MG 2ML VIAL IV ONE (19:50)
[2023-06-15] MEDS ORDERED: MORPHINE 4 MG/ML 1ML VIAL IV ONE (19:50)
[2023-06-15 20:17] LABS: ALBUMIN 3.4 G/DL (3.2-5.2); BILIRUBIN,DIRECT 0.2 MG/DL (<0.4); BILIRUBIN,TOTAL 0.8 MG/DL (0.3-1.2); TOTAL PROTEIN 6.7 G/DL (5.7-8.2)
[2023-06-15] MEDS ORDERED: NS 1,000 ML IV ONE (20:25)
[2023-06-15] MEDS ORDERED: cefTRIAXone SOD 1 GM in D5W MINI-BAG PLUS 50 ML IV ONE (20:25)
[2023-06-15] MEDS ORDERED: ISOVUE-370 76% 100ML VIAL As Ordered ONE (20:36)
[2023-06-15] MEDS ORDERED: ACETAMINOPHEN *IV* 1,000 MG in IV 1 EA IV ONE (21:25)
[2023-06-15 22:45] VITALS: O2SAT 93
[2023-06-15 22:51] LABS: CHLAMYDIA DNA AMPLIFICATION NEGATIVE (NEGATIVE); GC DNA AMPLIFICATION NEGATIVE (NEGATIVE)
[2023-06-15 23:06] VITALS: TEMP 98.7
[2023-06-15] MEDS ORDERED: LEVO1TAB39 PO (23:18)
[2023-06-15] MEDS ORDERED: NORCO 5/325MG TABLET (HOME DOSE PACK) PO ONE (23:25)
[2023-06-15 23:40] VITALS: BP 170/88
== END 2023-06-16 00:16 | disposition home or self-care (01) ==
LOC: M ED 19:12
DX: N45.3 Epididymo-orchitis (principal); N43.3 Hydrocele, unspecified; I10 Essential (primary) hypertension; Z85.818 Personal history of malignant neoplasm of other sites of lip, oral cavity, and pharynx; Z87.891 Personal history of nicotine dependence
CPT/HCPCS: 74177; 76870; 80047; 80076; 81001; 83605; 83690; 85025; 87040; 87088; 87186; 87661; 87810; 87850; 93976; 96365; 96366; 96368; 96375; 99284; J0131; J0696; J2405; Q9967

== ENCOUNTER → 2023-06-15 | Outpatient (CLI) | payer BC ==
[~2023-06-15] MED LIST changes: +CIAL10TA PO; +LEVO1TAB39 PO; +NORV5TAB PO
[2023-06-15 12:16] LABS: FREE T4 0.97 NG/DL (0.89-1.76); THYROID STIMULATING HORMONE 0.354 uIU/ML (0.55-4.78)
== END ==
LOC: M ONCR 09:57
PROVIDERS: ATTEND General Practice
DX: C09.0 Malignant neoplasm of tonsillar fossa (principal); Z71.2 Person consulting for explanation of examination or test findings; Z79.899 Other long term (current) drug therapy; Z87.891 Personal history of nicotine dependence; Z92.21 Personal history of antineoplastic chemotherapy; Z92.3 Personal history of irradiation
CPT/HCPCS: 36415; 84439; 84443; G0463

== ENCOUNTER → 2024-01-23 | Outpatient (CLI) | payer BC ==
[~2024-01-23] MED LIST changes: +LEVO1TAB39 PO; +ONDA-284 PO; -ONDA8TAB8 PO
== END ==
LOC: M ONCR 09:49
PROVIDERS: ATTEND General Practice
DX: Z08 Encounter for follow-up examination after completed treatment for malignant neoplasm (principal); Z85.818 Personal history of malignant neoplasm of other sites of lip, oral cavity, and pharynx; Z79.899 Other long term (current) drug therapy; Z87.891 Personal history of nicotine dependence; Z92.21 Personal history of antineoplastic chemotherapy; Z92.3 Personal history of irradiation
CPT/HCPCS: 31575; G0463

== ENCOUNTER → 2024-07-15 | Outpatient (CLI) | payer BC ==
[~2024-07-15] MED LIST changes: +GABA-1172; +GABA-1172 PO; -GABA-282; -GABA-282 PO
== END ==
LOC: M RAD 13:19
PROVIDERS: ATTEND Otolaryngology
DX: E04.1 Nontoxic single thyroid nodule (principal)

== ENCOUNTER → 2024-08-26 | Outpatient (CLI) | payer BC | LOC: M ONCR 09:59 | PROVIDERS: ATTEND General Practice | DX: Z08 Encounter for follow-up examination after completed treatment for malignant neoplasm (principal); Z85.818 Personal history of malignant neoplasm of other sites of lip, oral cavity, and pharynx; L59.8 Other specified disorders of the skin and subcutaneous tissue related to radiation; Z92.3 Personal history of irradiation; Z87.891 Personal history of nicotine dependence; Z79.899 Other long term (current) drug therapy | CPT/HCPCS: 31575; G0463 ==

== ENCOUNTER → 2024-11-04 | Outpatient (CLI) | payer BC ==
[~2024-11-04] MED LIST changes: +LIDOCAINE 1% MDV 20ML VIAL As Ordered ONE
[2024-11-04 08:25] VITALS: TEMP 97.3
[2024-11-04 09:04] VITALS: BP 176/100; O2SAT 100
== END ==
LOC: M IRPRO 08:16
PROVIDERS: ATTEND Otolaryngology
DX: E04.1 Nontoxic single thyroid nodule (principal)

== ENCOUNTER → 2025-02-24 | Outpatient (CLI) | payer BC ==
[~2025-02-24] MED LIST changes: +DULO1CAP6 PO; -IBUP-1022; -IBUP-1022 PO; +IBUP600T42; +IBUP600T42 PO; -LIDOCAINE 1% MDV 20ML VIAL As Ordered ONE; +MULT-90 PO
== END ==
LOC: M ONCR 10:00
PROVIDERS: ATTEND General Practice
DX: Z08 Encounter for follow-up examination after completed treatment for malignant neoplasm (principal); Z85.818 Personal history of malignant neoplasm of other sites of lip, oral cavity, and pharynx; G62.9 Polyneuropathy, unspecified; Z92.21 Personal history of antineoplastic chemotherapy; Z92.3 Personal history of irradiation; Z87.891 Personal history of nicotine dependence; Z79.899 Other long term (current) drug therapy
CPT/HCPCS: 31575; G0463